=== PATIENT | male | born 1950 | race Caucasian/White ===

== ENCOUNTER → 2019-07-12 | Outpatient (CLI) | payer MEDICARE, OTHER ==
--- NOTE | 2019-07-16 22:16 | MR ---
EXAMINATION TYPE: MR Prostate wo/w con DATE OF EXAM: 07/12/2019 COMPARISON: None. INDICATION: Elevated PSA, 15.9 on 06-12-19 PSA: 15.9 ng/ml on June 12, 2019. Recent Biopsy and Date: April 27, 2018 Pathology Report (If Applicable): Benign prostatic tissue all sites. TECHNIQUE: Examination was performed using a 3T MRI without an endorectal coil. Multiparametric imaging was perf ormed with T2 mutliplanar sequences, axial diffusion weighted imaging and dynamic contrast enhanced i maging, utilizing 7 mL intravenous Gadavist gadolinium contrast. FINDINGS: There is no clinically significant cancer identified. PROSTATE VOLUME: 6.3 cm SI x 5.1 cm AP x 5.5 cm LR Vol= 92.5 cc PSA DENSITY: 11.1 ng/ml/cc Markedly enlarged prostate gland with significant most prominent transitional zone hypertrophy. There are 4 distinct areas of low T1 and T2 signal causing artifact felt to reflect gold therapy seeds. Co rrelate clinically. Marked distortion is present on DWI and ADC imaging making evaluation of the thin peripheral zone sub optimal. Transitional zone shows fairly normal appearance without suspicious areas of hypointensity o n T2 weighted imaging. Seminal vesicles are felt within normal limits. Prosthetic capsule is maintained. Visualized osseous structures are intact. Bladder is poorly distended with moderate concentric wall thickening and trabe culation felt to reflect product of outlet obstruction related to BPH. Occasional sigmoid colonic div erticula is seen. IMPRESSION: Markedly enlarged prostate gland consistent with BPH. Some artifact degradation is presen t limiting evaluation of the thinned peripheral zone. A focus of clinically significant cancer is not identified. Highest Assessment Category: 1 MRI Stage: T0 N0 M0 based on review of pelvic images. False negative rates for MRI range from 5-20% depending on risk profile. Assessment Categories: 1 ? Very low (clinically significant cancer is highly unlikely to be present) 2 ? Low (clinically significant cancer is unlikely to be present) 3 ? Intermediate (the presence of clinically significant cancer is equivocal) 4 ? High (clinically significant cancer is likely to be present) 5 ? Very high (clinically significant cancer is highly likely to be present) Locations: PZ = peripheral zone; TZ = transition zone CZ=central zone; AFS = anterior fibromuscular stroma a=anterior half (i.e. PZa=anterior half of peripheral zone); pm= posterior medial (i.e PZpm) pl = postero-lateral (i.e. PZpl); p = posterior half (i.e. TZp) ; a = anterior half (i.e TZa or P Za) Other: N=no or no; E= equivocal; Y=yes EPE = extraprostatic extension NVB = neurovascular bundle NA = not applicable/not available
== END | disposition home or self-care (01) ==
LOC: RADMRIMAIN 15:11
PROVIDERS: ATTEND Urology
DX: N40.0 Benign prostatic hyperplasia without lower urinary tract symptoms (principal)
CPT/HCPCS: 72197; A9585

== ENCOUNTER 2023-10-18 02:50 | Inpatient (IN) | payer MEDICARE ==
[~2023-10-18 02:50] MED LIST: CALCIUM CARBONATE 500 MG CHEWABLE PO ONE
[2023-10-18] MEDS ORDERED: cefTRIAXone 1 GM VIAL ONE (03:38)
[2023-10-18] MEDS ORDERED: MAG HYDROX/AL HYDROX/SIMETH 30 ML CUP ONE (05:24)
[2023-10-18] MEDS ORDERED: CALCIUM CARBONATE 500 MG CHEWABLE PO ONE (07:30)
[2023-10-18] MEDS ORDERED: SODIUM BICARBONATE TAB 650 MG TAB ONE (13:41)
[2023-10-18] MEDS ORDERED: ATORVASTATIN 80 MG TAB ONE (14:46)
[2023-10-18] MEDS ORDERED: FAMOTIDINE 20 MG TAB ONE (14:46)
[2023-10-18] MEDS ORDERED: SODIUM BICARB 8.4% 50 ML SYR (1 MEQ/ML) ONE (14:47)
[2023-10-18] MEDS ORDERED: HEPARIN SODIUM,PORCINE 5,000 UNIT/ML 1 ML VIAL ONE (14:47)
[2023-10-18] MEDS ORDERED: ASPIRIN 81 MG ONE (14:47)
[2023-10-18] MEDS ORDERED: SODIUM ZIRCONIUM CYCLOSILICATE 10 GM PACKET ONE (14:48)
[2023-10-18] MEDS ORDERED: ATORVASTATIN 40 MG TAB ONE (21:39)
[2023-10-19] MEDS ORDERED: HEPARIN SODIUM,PORCINE 5,000 UNIT/ML 1 ML VIAL ONE ×3 (02:19→23:32)
[2023-10-19] MEDS ORDERED: SODIUM CHLORIDE 0.9% 1,000 ML BAG ONE (08:00)
[2023-10-19] MEDS ORDERED: SODIUM CHLORIDE 0.9% 50 ML BAG ONE (08:00)
[2023-10-19] MEDS ORDERED: TAMSULOSIN 0.4 MG CAP.ER.24H PO ONE (09:50)
[2023-10-19] MEDS ORDERED: ASPIRIN 81 MG ONE (09:50)
[2023-10-19] MEDS ORDERED: ATORVASTATIN 40 MG TAB ONE (09:51)
[2023-10-19] MEDS ORDERED: FAMOTIDINE 20 MG TAB ONE (09:51)
[2023-10-19] MEDS ORDERED: cefTRIAXone IN SWFI 1,000 MG/10 ML SYRINGE IVP ONE (09:53)
[2023-10-19] MEDS ORDERED: HYDROcodone/APAP 5-325MG 1 EACH TAB ONE (21:27)
[2023-10-20] MEDS ORDERED: HYDROcodone/APAP 5-325MG 1 EACH TAB ONE ×6 (03:13→21:32)
[2023-10-20] MEDS ORDERED: TAMSULOSIN 0.4 MG CAP.ER.24H PO ONE (10:07)
[2023-10-20] MEDS ORDERED: cefTRIAXone 1 GM VIAL ONE (10:07)
[2023-10-20] MEDS ORDERED: HEPARIN SODIUM,PORCINE 5,000 UNIT/ML 1 ML VIAL ONE ×2 (10:07→21:32)
[2023-10-20] MEDS ORDERED: ASPIRIN 81 MG ONE (10:07)
[2023-10-20] MEDS ORDERED: FAMOTIDINE 20 MG/2 ML VIAL ONE (10:08)
[2023-10-20] MEDS ORDERED: FAMOTIDINE 20 MG TAB ONE (10:09)
[2023-10-20] MEDS ORDERED: ATORVASTATIN 40 MG TAB ONE (21:32)
[2023-10-20] MEDS ORDERED: SODIUM BICARBONATE TAB 650 MG TAB ONE (21:32)
[2023-10-21] MEDS ORDERED: HYDROcodone/APAP 5-325MG 1 EACH TAB ONE (04:55)
[2023-10-21] MEDS ORDERED: TAMSULOSIN 0.4 MG CAP.ER.24H PO ONE (09:14)
[2023-10-21] MEDS ORDERED: ASPIRIN 81 MG ONE (09:14)
[2023-10-21] MEDS ORDERED: FAMOTIDINE 20 MG TAB ONE (09:15)
[2023-10-21] MEDS ORDERED: cefTRIAXone 1 GM VIAL ONE (09:15)
[2023-10-21] MEDS ORDERED: HEPARIN SODIUM,PORCINE 5,000 UNIT/ML 1 ML VIAL ONE ×2 (09:15→15:46)
[2023-10-21] MEDS ORDERED: SODIUM BICARBONATE TAB 650 MG TAB ONE (09:22)
[2023-10-21] MEDS ORDERED: MAGNESIUM SULFATE-D5W PMX 200 ML IVPB ONE (13:16)
--- NOTE | 2023-11-08 10:59 | US ---
Site ID [facility] Patient Grayson Mccollum ID [id number] Age/Gender: 73Y, M Order # N/A Procedure US kidneys/renal and bladder Date 10/18/2023 8:39:00 AM EXAMINATION TYPE: US renals and bladder DATE OF EXAM: 11/05/2023 COMPARISON: NONE CLINICAL INDICATION: Male, 73 year old with history of urinary retention, gross hematuria, hypertensi on, pelvic pain with urination. EXAM MEASUREMENTS: Right Kidney: 12.0 x 5.7 x 7.1 cm Left Kidney: 12.0 x 6.1 x 6.8 cm Right Kidney: Hydronephrosis Left Kidney: Hydronephrosis Bladder: Nondistended Moderate to severe bilateral hydronephrosis. No nephrolithiasis is seen. No masses are identified. C ortical medullary differentiation is maintained bilaterally. The urinary bladder appears to be decomp ressed with [place] catheter in place. There is circumferential wall thickening of the urinary bladder. Enlarged prostate gland measuring 5.8 x 5.1 x 3.9 cm. IMPRESSION: Moderate to severe bilateral hydronephrosis with nondistended urinary bladder from suspected [place] ca theter placement. Marked circumferential wall thickening of the urinary bladder. Raises possibility o f cystitis and/or neoplastic abnormality in the setting of gross hematuria. Direct visualization is r ecommended.
== END 2023-10-21 16:25 | disposition home or self-care (01) | DRG 694 ==
LOC: DISRECOVER 02:50
PROVIDERS: ADMIT Hospitalist; ATTEND Hospitalist
DX: N13.30 Unspecified hydronephrosis (principal); N17.9 Acute kidney failure, unspecified; I10 Essential (primary) hypertension; N39.0 Urinary tract infection, site not specified; I25.10 Atherosclerotic heart disease of native coronary artery without angina pectoris; E78.5 Hyperlipidemia, unspecified; R31.0 Gross hematuria; E87.5 Hyperkalemia; D64.9 Anemia, unspecified; Z98.890 Other specified postprocedural states; Z79.82 Long term (current) use of aspirin; Z79.899 Other long term (current) drug therapy
CPT/HCPCS: 76770; 80048; 80053; 81003; 83605; 83735; 84100; 84484; 85025; 87086; 93005; 99285